=== PATIENT | female | born 1995 | race Caucasian/White ===

== ENCOUNTER 2017-12-12 10:20 | Emergency (ER) | payer OTHER ==
[2017-12-12 10:30] VITALS: BP 141/65
[2017-12-12] MEDS ORDERED: cefTRIAXone VIAL(*) 250 MG VIAL IM ONE (10:48)
[2017-12-12] MEDS ORDERED: Azithromycin TAB* 250 MG PO ONE (10:49)
--- NOTE | 2017-12-12 10:54 | UC ---
Abdominal Pain Female HPI - HPI Summary HPI Summary: both term vaginal births. LLQ pain starting 3 days ago, steadily worsening , feels crampy like childbirth contractions. tested positive for chlamydia yesterday, pt does not know how he got it. 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 Denies fever or vomiting. Mild vulvar soreness and discharge, no substantial urinary symptoms. Denies known history of STIs. Has appt for IUD at [facility] on 12/17/17. - History of Current Complaint Chief Complaint: UCGU Stated Complaint: ABDOMINAL PAIN Time Seen by Provider: 12/12/17 10:34 Hx Obtained From: Patient Hx Last Menstrual Period: [id number] ?: No Timing: Constant Severity Initially: Mild Severity Currently: Moderate Pain Intensity: 5 Location: Discrete At: LLQ Radiates: No Character: Aching, Colicy, Cramping, Dull Alleviating Factor(s): Nothing Associated Signs and Symptoms: Positive: Vaginal Discharge, Nausea. Negative: Blood in Stool Allergies/Adverse Reactions: Allergies Allergy/AdvReac Type Severity Reaction Status Date / Time No Known Allergies Allergy Verified 12/12/17 10:30 Home Medications: Home Medications Desvenlafaxine (NF) [Pristiq (NF)] 50 mg PO DAILY 12/12/17 [History Confirmed ] Phentermine HCl 37.5 mg PO DAILY 12/12/17 [History Confirmed 12/12/17] lamoTRIgine [Lamictal] 100 mg PO DAILY 12/12/17 [History Confirmed 12/12/17] PMH/Surg Hx/FS Hx/Imm Hx Previously Healthy: Yes - Surgical History Surgical History: None - Social History Lives: With Family Alcohol Use: Occasionally Substance Use Type: Marijuana Substance Use Comment - Amount & Last Used: occasional Smoking Status (MU): Light Every Day Tobacco Smoker Type: Cigarettes Amount Used/How Often: 4-5 cigs/daily x 2 yr Length of Time of Smoking/Using Tobacco: 2 yr Have You Smoked in the Last Year: Yes Household Exposure Type: Cigarettes Cessation Counseling: Patient Advised to Stop - Immunization History Most Recent Influenza Vaccination: up to date Most Recent Tetanus Shot: had Most Recent Pneumonia Vaccination: none Review of Systems Constitutional: Negative Skin: Negative Eyes: Negative ENT: Negative Respiratory: Negative Cardiovascular: Negative Gastrointestinal: Abdominal Pain Genitourinary: Negative Motor: Negative Neurovascular: Negative Musculoskeletal: Negative Neurological: Negative Psychological: Negative Is Patient Immunocompromised?: No All Other Systems Reviewed And Are Negative: Yes Physical Exam Triage Information Reviewed: Yes Appearance: Well-Appearing, No Pain Distress, Well-Nourished Vital Signs: Initial Vital Signs Temp 97.7 F 12/12/17 10:26 Pulse 86 12/12/17 10:26 Resp 20 12/12/17 10:26 BP 141/65 12/12/17 10:26 Pulse Ox 99 12/12/17 10:26 Vital Signs Reviewed: Yes Eye Exam: Normal Eyes: Positive: Conjunctiva Clear ENT Exam: Normal ENT: Positive: Normal ENT inspection, Hearing grossly normal, Pharynx normal, TMs normal Dental Exam: Normal Neck exam: Normal Neck: Positive: Supple, Nontender, No Lymphadenopathy Respiratory Exam: Normal Respiratory: Positive: Chest non-tender, Lungs clear, Normal breath sounds, No respiratory distress, No accessory muscle use Cardiovascular Exam: Normal Cardiovascular: Positive: RRR, No Murmur Abdomen Description: Positive: Nontender, No Organomegaly, Soft. Negative: CVA Tenderness (R), CVA Tenderness (L), Distended, Guarding, McBurney's Point Tenderness Pelvic Exam: Positive: External Exam Normal, Speculum Exam Normal, Bimanual Exam Normal, No Cerv. Motion Tender, No Masses, Tender Adnexa - very minimal on L side, pt reports it actually hurts more without palpation. Negative: Active Bleeding, Cervicitis, Lesions, Tender w/ Cervical Motion, Tender Uterus Musculoskeletal Exam: Normal Musculoskeletal: Positive: Strength Intact, ROM Intact Neurological Exam: Normal Psychological Exam: Normal Skin Exam: Normal Abd Pain Female Course/Dx - Course Course Of Treatment: Pt has appt for IUD on 12/17 at [facility]. Encouraged her to discuss pain at that appointment if it is still present. - Differential Dx/Diagnosis Provider Diagnoses: Abdominal pain. exposure to chlamydia Discharge - Sign-Out/Discharge Documenting (check all that apply): Discharge/Admit/Transfer - Discharge Plan Condition: Stable Disposition: HOME Patient Education Materials: Acute Abdominal Pain (ED), Chlamydia (ED) Referrals: Nirmala Londono MD [Primary Care Provider] - Additional Instructions: I do not see a clear cause of your discomfort today, but your test is negative and your exam does not suggest uterus infection. It may be intestinal or a benign ovarian cyst, but for now it is safe to monitor your symptoms at home. Go directly to the emergency department if you develop fever, severe pain, heavy vaginal bleeding, or if you pass out at any time. Otherwise, follow up with [facility] or Dr. Londono if you have persistent or recurrent pain. - Billing Disposition and Condition Condition: STABLE Disposition: HOME
[2017-12-12] MEDS ORDERED: Lidocaine 1% MPF* 2 ML VIAL INJ ONE (11:17)
[2017-12-12] MEDS ORDERED: Lidocaine 1% MPF* 2 ML VIAL ONE (11:20)
--- NOTE | 2017-12-13 15:02 | UC ---
- Progress Note Progress Note: Results positive for Gardnerella Rx sent for flagyl 500mg BID for 7 days Discharge - Sign-Out/Discharge Documenting (check all that apply): Post-Discharge Follow Up - Discharge Plan Condition: Stable Disposition: HOME Prescriptions: metroNIDAZOLE [Flagyl] 500 mg PO BID #14 tablet Patient Education Materials: Chlamydia (ED), Acute Abdominal Pain (ED) Referrals: Nirmala Londono MD [Primary Care Provider] - Additional Instructions: I do not see a clear cause of your discomfort today, but your test is negative and your exam does not suggest uterus infection. It may be intestinal or a benign ovarian cyst, but for now it is safe to monitor your symptoms at home. Go directly to the emergency department if you develop fever, severe pain, heavy vaginal bleeding, or if you pass out at any time. Otherwise, follow up with [facility] or Dr. Londono if you have persistent or recurrent pain. - Billing Disposition and Condition Condition: STABLE Disposition: HOME
== END 2017-12-12 11:40 | disposition home or self-care (01) ==
LOC: UCEAST 10:20
DX: R10.32 Left lower quadrant pain (principal); Z20.2 Contact with and (suspected) exposure to infections with a predominantly sexual mode of transmission; N76.0 Acute vaginitis; B96.89 Other specified bacterial agents as the cause of diseases classified elsewhere; F17.210 Nicotine dependence, cigarettes, uncomplicated
CPT/HCPCS: 81003; 81025; 87480; 87491; 87510; 87591; 87661; 96372; 99212; A9270-GY; G0463; J0696

== ENCOUNTER 2023-11-23 11:32 | Inpatient (IN) ==
[2023-11-23] MEDS ORDERED: Prochlorperazine 5 mg/ml 2 ml VIAL (10 mg) IV PRN (13:50)
[2023-11-23] MEDS ORDERED: Lidocaine 1% VIAL 10 MG/ML 30 ML VIAL INJ PRN (13:50)
[2023-11-23 14:08] LABS: ABS Monocytes 0.8 10^3/uL (0.0-0.9); ABS Neutrophils 8.8 10^3/uL (1.5-7.6); Eosinophil % 0.4 %; Hematocrit 35.2 % (35-45); Hemoglobin 11.4 g/dL (11.5-14.3); Mean Corpuscular Hemoglobin 24.9 pg (27-33); Mean Corpuscular Hgb Conc 32.4 g/dL (31-36); Mean Corpuscular Volume 76.9 fL (80-97); Mean Platelet Volume 8.7 fL (7.5-11.2); Platelet Count 322 10^3/uL (150-450); Red Blood Count 4.58 10^6/uL (3.63-4.92); White Blood Count 12.7 10^3/uL (3.8-11.8)
[2023-11-23 14:29] LABS: Urine Benzodiazepine Screen None Detected (None Detect); Urine Opiates Screen None Detected (None Detect)
[2023-11-23] MEDS: Lactated Ringers 1000 ml BAG 1,000 ML IV SCH (14:58)
[2023-11-23] MEDS: Penicillin G Potassium IV 5,000,000 UNITS in NS 0.9% 100 ml BAG 100 ML IVPB ONE (14:58)
[2023-11-23] MEDS: Oxytocin in LR 20,000 MILLI.UNIT/1,000 ML BAG IV SCH (15:53)
[2023-11-23] MEDS: Lactated Ringers 1000 ml BAG 1,000 ML IV ONE (18:48)
[2023-11-23] MEDS: OBEPIDURAL (200 ML) 200 ML EPIDURAL ONE (18:53)
[2023-11-23] MEDS: Lidocaine 1.5% EPI 1:200,000 30 ML SDV ONE (18:54)
[2023-11-23] MEDS: Penicillin G Potassium IV 3,000,000 UNITS in NS 0.9% 100 ml BAG 100 ML IVPB SCH (19:20)
[2023-11-23 20:18] LABS: Urine Appearance Clear; Urine Bilirubin Negative (Negative); Urine Blood 1+ (Negative); Urine Color Yellow; Urine Glucose 1+ (>=70 mg/dL) (Negative); Urine Ketones Trace (Negative); Urine Nitrite Negative (Negative); Urine Protein 1+ (>=30 mg/dL) (Negative); Urine Specific Gravity 1.038 (1.002-1.030); Urine Urobilinogen Negative (Negative); Urine pH 6.5 (5.0-8.0)
[2023-11-23 20:24] LABS: Urine Bacteria Absent /HPF (Absent); Urine Red Blood Cell 3+(>10/hpf) /HPF (0-Trace); Urine Squamous Epithelial Cell Present /HPF (Absent); Urine White Blood Cell Trace(0-5/hpf) /HPF (0-Trace)
[2023-11-23] MEDS ORDERED: Phenylephrine 40 mcg/mL 10mL (400mcg) SYRINGE IV PUSH PRN ×2 (23:10)
[2023-11-23] MEDS ORDERED: Sodium Citrate/Citric Acid LIQ 15 ML UDC PO PRN (23:10)
[2023-11-23] MEDS: Buffered Lidocaine 1% SYRIN 1 ml INTRADERM ONE (23:13)
[2023-11-24] MEDS ORDERED: Glycerin ADULT 2.4 gm SUPP PR PRN (00:05)
[2023-11-24] MEDS ORDERED: Lactated Ringers 1000 ml BAG 1,000 ML IV SCH (01:00)
[2023-11-24] MEDS: Witch Hazel PAD JAR TOPICAL PRN (01:41)
[2023-11-24] MEDS: Dibucaine 1% OINT 28.35 GM TUBE PR PRN (01:41)
[2023-11-24] MEDS: Lactated Ringers 1000 ml BAG 1,000 ML IV ONE (04:37)
[2023-11-24] MEDS: Lactated Ringers 1000 ml BAG 1,000 ML IV SCH (04:37)
[2023-11-24] MEDS: OBEPIDURAL (200 ML) 200 ML EPIDURAL SCH (04:38)
[2023-11-24 06:14] LABS: ABS Monocytes 1.3 10^3/uL (0.0-0.9); ABS Neutrophils 16.6 10^3/uL (1.5-7.6); ABS Nucleated RBC 0.01 10^3/ul; Hematocrit 33.2 % (35-45); Hemoglobin 10.9 g/dL (11.5-14.3); Lymphocyte % 14.5 %; Mean Corpuscular Hgb Conc 32.7 g/dL (31-36); Mean Corpuscular Volume 76.5 fL (80-97); Mean Platelet Volume 8.4 fL (7.5-11.2); Platelet Count 310 10^3/uL (150-450); Red Blood Count 4.34 10^6/uL (3.63-4.92)
[2023-11-24] MEDS ORDERED: Measles, Mumps,Rubella VACC 0.5 ML/VIAL SUBCUT ONE (15:02)
[2023-11-25] MEDS ORDERED: Hemorrhoidal OINT 1 TUBE PR PRN (09:16)
[2023-11-25] MEDS: Measles, Mumps,Rubella VACC 0.5 ML/VIAL SUBCUT ONE (10:36)
[2023-11-25 10:43] LABS: ABS Basophils 0.1 10^3/uL (0.0-0.1); ABS Eosinophils 0.1 10^3/uL (0.0-0.5); ABS Lymphocytes 2.6 10^3/uL (1.0-4.8); ABS Monocytes 0.8 10^3/uL (0.0-0.9); ABS Neutrophils 9.1 10^3/uL (1.5-7.6); Hematocrit 33.7 % (35-45); Hemoglobin 10.9 g/dL (11.5-14.3); Lymphocyte % 20.7 %; Mean Corpuscular Hgb Conc 32.3 g/dL (31-36); Mean Corpuscular Volume 77.4 fL (80-97); Mean Platelet Volume 8.3 fL (7.5-11.2); Platelet Count 300 10^3/uL (150-450); Red Blood Count 4.36 10^6/uL (3.63-4.92); Red Cell Distribution Width 15.3 % (12-17); White Blood Count 12.6 10^3/uL (3.8-11.8)
[2023-11-25 19:34] VITALS: BP 143/70
== END 2023-11-25 18:45 | disposition home or self-care (01) | DRG 560 ==
LOC: MCHOBOUT 11:32 → MCHOB 13:37
PROVIDERS: ADMIT Registered Nurse; ATTEND Registered Nurse